=== PATIENT | female | born 2000 | race Two or more races ===

== ENCOUNTER 2020-08-04 14:15 | Inpatient (IN) | payer OTHER ==
[~2020-08-04] VITALS: Ht 149.9 cm; Wt 77.6 kg
[2020-08-13] MEDS ORDERED: PRENATABS RX T1 EACH PO (06:10)
== END 2020-08-15 13:47 | disposition home or self-care (01) | DRG 807 ==
LOC: LDR 08-13 06:06 → OB/GYN 08-13 16:27
PROVIDERS: ADMIT Specialist; ATTEND Specialist
PROC: 10E0XZZ Delivery of Products of Conception, External Approach (ICD-10-PCS; principal; 2020-08-13)
PROC: 0W8NXZZ Division of Female Perineum, External Approach (ICD-10-PCS; 2020-08-13)
PROC: 10907ZC Drainage of Amniotic Fluid, Therapeutic from Products of Conception, Via Natural or Artificial Opening (ICD-10-PCS; 2020-08-13)
PROC: 4A1HXFZ Monitoring of Products of Conception, Cardiac Rhythm, External Approach (ICD-10-PCS; 2020-08-13)
PROC: 0KQM0ZZ Repair Perineum Muscle, Open Approach (ICD-10-PCS; 2020-08-13)
DX: O70.1 Second degree perineal laceration during delivery (principal); Z37.0 Single live birth; Z3A.39 39 weeks gestation of pregnancy; Z20.822 Contact with and (suspected) exposure to COVID-19